=== PATIENT | male | born 1975 | race Two or more races ===

== ENCOUNTER 2019-07-27 11:01 | Emergency (ER) | payer BC ==
[~2019-07-27] VITALS: Ht 162.6 cm; Wt 81.6 kg
[2019-07-27 11:23] VITALS: BP 138/67
--- NOTE | 2019-07-27 13:29 | PHYS DOC ---
Past Medical History Past Medical History: No Pertinent History Additional Past Medical Histor: PRE DIABETIC (MARCELLA CAMPOS APRN) Past Surgical History: Appendectomy (MARCELLA CAMPOS APRN) Alcohol Use: None Drug Use: None (MARCELLA CAMPOS APRN) Adult General Chief Complaint Chief Complaint: FOOT INJURY PAIN HPI HPI Patient is a 43 year old male who presents to the ER with complaints of lateral right ankle pain and swelling for the last 2 days. Patient denies any new injury. States he used to play soccer and reports a history of ankle injuries. He currently rates his pain a 10/10 on the pain scale. (MARCELLA CAMPOS APRN) Review of Systems Review of Systems Constitutional: Denies fever or chills [] Eyes: Denies redness, or eye pain [] HENT: Denies nasal congestion or sore throat [] Respiratory: Denies cough or shortness of breath [] Musculoskeletal: Denies back pain; see HPI Integument: Denies rash or skin lesions [] Neurologic: Denies headache, focal weakness or sensory changes [] Complete systems were reviewed and found to be within normal limits, except as documented in this note. (MARCELLA CAMPOS APRN) Allergies Allergies Allergies Coded Allergies Type Severity Reaction Last Updated Verified No Known Drug Allergies 09/03/14 No (KARAN KUMAR MD) Physical Exam Physical Exam Constitutional: Well developed, well nourished, no acute distress, non-toxic appearance. [] HENT: Normocephalic, atraumatic, bilateral external ears normal, nose normal. [] Eyes: PERRLA, EOMI, conjunctiva normal, no discharge. [] Neck: Normal range of motion Lungs & Thorax: Respirations even and unlabored, no retractions, no respiratory distress Skin: Warm, dry, no erythema, no rash, no bruising. [] Extremities: Lateral right ankle TTP, no crepitus, no obvious deformity, 1+ edema, no cyanosis, no clubbing, ROM intact Neurologic: Alert and oriented X 3, normal motor function, normal sensory function, no focal deficits noted. [] Psychologic: Affect normal, judgement normal, mood normal. [] (MARCELLA CAMPOS APRN) Current Patient Data Vital Signs Vital Signs Date Time Temp Pulse Resp B/P (MAP) Pulse Ox O2 Delivery O2 Flow Rate FiO2 07/27/19 11:23 98.0 88 16 138/67 (90) 98 Room Air 98.0 (KARAN KUMAR MD) EKG EKG [] (MARCELLA CAMPOS APRN) Radiology/Procedures Radiology/Procedures old fracture of distal fibula, pt denies any recent injury. Read by Dr. Kumar[] (MARCELLA CAMPOS APRN) Course & Med Decision Making Course & Med Decision Making Pertinent Labs and Imaging studies reviewed. (See chart for details) [] (MARCELLA CAMPOS APRN) Course & Med Decision Making Staff Physician Addendum: I was working in the ER during the course of this patient's visit. I was available for consultation as needed, but I was not directly involved in the care of this patient. (KARAN KUMAR MD) Dragon Disclaimer Dragon Disclaimer This electronic medical record was generated, in whole or in part, using a voice recognition dictation system. (MARCELLA CAMPOS APRN) Departure Departure Impression: Primary Impression: Pain in lateral portion of right ankle Disposition: HOME, SELF-CARE Condition: STABLE Referrals: ADY BOONE MD Patient Instructions: Ankle Pain Additional Instructions: May take Tylenol or ibuprofen as needed for pain. Recommend application of ice, elevation, and rest of affected extremity. Wear the Lazaro wrap that was placed as needed for comfort, and use the crutches supplied for ambulation. Follow-up with Dr. Boone if symptoms persist, return to the ER if your symptoms worsen. MARCELLA CAMPOS APRN Jul 27, 2019 13:29 KARAN KUMAR MD Jul 28, 2019 17:49
--- NOTE | 2019-07-27 14:13 | RAD ---
ANKLE RIGHT 3V INDICATION: Ankle pain COMPARISON: None. FINDINGS: No acute fracture or malalignment. Well-corticated ossific density inferior to the fibula may relate to remote injury, accessory ossicle, or degenerative changes. The joint spaces are maintained. Bony mineralization is normal for the patient's age. No significant soft tissue abnormality. No radiopaque foreign body. IMPRESSION: No acute fracture or malalignment. Electronically signed by: Jun Dillard MD (07/27/2019 2:10 PM) [facility]
== END 2019-07-27 13:55 | disposition home or self-care (01) ==
LOC: ER 11:01
DX: M25.571 Pain in right ankle and joints of right foot (principal); R60.0 Localized edema
CPT/HCPCS: 73610; 99284

== ENCOUNTER → 2019-07-31 | Outpatient (CLI) | payer BC ==
[2019-07-27 11:23] VITALS: BP 138/67
--- NOTE | 2019-07-31 12:59 | RAD ---
MR of the right ankle HISTORY: Posterolateral ankle pain for 6 days. No known injury. TECHNIQUE: Routine multiplanar sequences are obtained FINDINGS: The peroneal tendons are intact. High-grade tear of the anterior talofibular ligament. Sprain of the calcaneofibular and posterior talofibular ligaments. Mild signal and thickening of the anterior tibiofibular syndesmotic ligament compatible with mild sprain. Posterior tibial and flexor tendons are intact. No acute medial ligament injury. Anterior tibial and extensor tendons are intact. Achilles tendon intact. No acute plantar fasciitis. Subtalar joints are patent. Tarsal sinus intact. Talar dome is intact. No acute fracture. No aggressive bone destruction. Small tibiotalar and subtalar joint effusion. IMPRESSION: 1. Anterior talofibular ligament tear. Calcaneofibular and posterior talofibular ligament sprain. 2. Mild anterior tibiofibular syndesmotic ligament sprain. 3. Joint effusions. Electronically signed by: Benoit Morales MD (07/31/2019 12:56 PM) [id number]
== END | disposition home or self-care (01) ==
LOC: MRI 08:41
PROVIDERS: ATTEND Orthopaedic Surgery
DX: S93.411A Sprain of calcaneofibular ligament of right ankle, initial encounter (principal); S93.491A Sprain of other ligament of right ankle, initial encounter; X58.XXXA Exposure to other specified factors, initial encounter; Y93.89 Activity, other specified; Y92.89 Other specified places as the place of occurrence of the external cause; Y99.8 Other external cause status
CPT/HCPCS: 73721

== ENCOUNTER 2020-03-29 10:48 | Emergency (ER) | payer BC ==
[~2020-03-29] VITALS: Ht 162.6 cm; Wt 81.0 kg
[2020-03-29 10:53] VITALS: BP 140/77
--- NOTE | 2020-03-29 12:11 | PHYS DOC ---
Past Medical History Past Medical History: No Pertinent History Additional Past Medical Histor: PRE DIABETIC Past Surgical History: Appendectomy Smoking Status: Current Every Day Smoker Alcohol Use: Rarely Drug Use: None General Adult EDM: Chief Complaint: COUGH HPI: HPI: Patient is a 44 year old Male who presents with patient states he was working outside yesterday and it was raining and last night when he got home from work he began coughing. He states he was up all night with a cough. He states that his gave him NyQuil to take. He denies coughing up any mucus, nausea, vomiting, diarrhea, fever, shortness of breath, chest pain, fatigue, body aches, nasal congestion. He states he takes no medications daily and is has no medical history. Review of Systems: Review of Systems: Respiratory: cough or denies shortness of breath. [] Heart Score: Risk Factors: Risk Factors: DM, Current or recent (<one month) smoker, HTN, HLP, family history of CAD, obesity. Risk Scores: Score 0 - 3: 2.5% MACE over next 6 weeks - Discharge Home Score 4 - 6: 20.3% MACE over next 6 weeks - Admit for Clinical Observation Score 7 - 10: 72.7% MACE over next 6 weeks - Early Invasive Strategies Allergies: Allergies: Allergies Coded Allergies Type Severity Reaction Last Updated Verified No Known Drug Allergies 09/03/14 No Physical Exam: PE: Constitutional: Well developed, well nourished, no acute distress, non-toxic appearance. [] HENT: Normocephalic, atraumatic, bilateral external ears normal, oropharynx moist, no oral exudates, nose normal. [] Eyes: PERRLA, EOMI, conjunctiva normal, no discharge. [] Neck: Normal range of motion, no tenderness, supple, no stridor. [] Cardiovascular:Heart rate regular rhythm, no murmur [] Lungs & Thorax: Bilateral breath sounds clear to auscultation [] Abdomen: Bowel sounds normal, soft, no tenderness, no masses, no pulsatile masses. [] Skin: Warm, dry, no erythema, no rash. [] Back: No tenderness, no CVA tenderness. [] Extremities: No tenderness, no cyanosis, no clubbing, ROM intact, no edema. [] Neurologic: Alert and oriented X 3, normal motor function, normal sensory function, no focal deficits noted. [] Psychologic: Affect normal, judgement normal, mood normal. Normal Physical Exam [] Current Patient Data: Vital Signs: Vital Signs Date Time Temp Pulse Resp B/P (MAP) Pulse Ox O2 Delivery O2 Flow Rate FiO2 03/29/20 10:53 98.7 100 16 140/77 (98) 99 Room Air 98.7 EKG: EKG: [] Radiology/Procedures: Radiology/Procedures: [] Impression: [facility] [address] [place] [address] IMAGING REPORT Signed PATIENT: JESSE CULP ACCOUNT: [id number] : 1975 LOCATION: ER AGE: 44 SEX: M EXAM STATUS: REG ER ORD. PHYSICIAN: JM TERRELL APRN REASON: cough PROCEDURE: PORTABLE CHEST 1V PORTABLE CHEST 1V History: Cough Comparison: None. Findings: No consolidation or pleural effusion. Normal heart size. No pneumothorax. Chronic left clavicular fracture. Impression: 1. No acute cardiopulmonary process. Electronically signed by: Al Ashley DO (03/29/2020 12:09 PM) [id number] DICTATED and SIGNED BY: AL ASHLEY DO DATE: 03/29/20 1209 Course & Med Decision Making: Course & Med Decision Making Pertinent Labs and Imaging studies reviewed. (See chart for details) Lungs are clear to auscultation all lobes. Patient is Citizen Of [place]-speaking only and shipping associate is used. Alert and oriented. Ambulatory with steady gait. Skin pink warm and dry. Afebrile. Speaks in full clear sentences. No extremity swelling. Vital signs within normal limits. [] Dragon Disclaimer: Dragon Disclaimer: This electronic medical record was generated, in whole or in part, using a voice recognition dictation system. Departure Departure Impression: Primary Impression: Cough Disposition: 01 HOME, SELF-CARE Condition: STABLE Referrals: NO PCP (PCP) Patient Instructions: Cough, Adult, [id number] Additional Instructions: If you begin to have severe shortness of breath, chest pain return to ED. Take Tylenol for fever or pain. Take medications as prescribed. Stop smoking. Scripts Benzonatate (TESSALON PERLE) 100 Mg Capsule 1 CAP PO TID, #30 CAP Prov: JM TERRELL APRN 03/29/20 JM TERRELL APRN March 29, 2020 12:11
[2020-03-29] MEDS ORDERED: BENZ100C PO (12:25)
== END 2020-03-29 12:40 | disposition home or self-care (01) ==
LOC: ER 10:48
DX: R05 Cough (principal); F17.200 Nicotine dependence, unspecified, uncomplicated; Z90.89 Acquired absence of other organs
CPT/HCPCS: 71045; 99283